=== PATIENT | female | born 1965 ===

== ENCOUNTER 2016-12-27 21:17 | Emergency (ER) | payer OTHER ==
[2016-12-27 21:39] VITALS: BP 130/76
--- NOTE | 2016-12-27 22:11 | UC ---
Skin Complaint HPI - HPI Summary HPI Summary: patient tightened her nose peircing and now it is stuck and starting to make the side of her nose swell. - History of Current Complaint Time Seen by Provider: 12/27/16 21:38 Stated Complaint: EMBEDDED NOSE PIERCING Hx Obtained From: Patient ?: No Onset/Duration: Sudden Onset, Lasting Hours Skin Exposure Onset/Duration: Hours Ago Timing: Constant Onset Severity: Mild Current Severity: Moderate Location: Face, Nose Character: Swelling, Redness Aggravating: Touch Alleviating: Nothing - Allergy/Home Medications Allergies/Adverse Reactions: Allergies Allergy/AdvReac Type Severity Reaction Status Date / Time Fluconazole [From Diflucan] Allergy Hives Verified 12/27/16 21:35 Home Medications: Home Medications Metoprolol Tartrate TAB* [Lopressor TAB*] 50 mg PO BID 12/27/16 [History Confirmed 12/27/16] proPAFENone TAB* [Rythmol*] 150 mg PO TID 12/27/16 [History Confirmed 12/27/16] Review of Systems Constitutional: Negative Skin: Other - embedded nose peircing Eyes: Negative ENT: Negative Respiratory: Negative Cardiovascular: Negative Gastrointestinal: Negative Genitourinary: Negative Motor: Negative Neurovascular: Negative Musculoskeletal: Negative Neurological: Negative Psychological: Negative All Other Systems Reviewed And Are Negative: Yes PMH/Surg Hx/FS Hx/Imm Hx Previously Healthy: Yes - Surgical History Surgical History: None - Family History Known Family History: Positive: Cardiac Disease, Hypertension - Social History Alcohol Use: None Substance Use Type: None Smoking Status (MU): Never Smoked Tobacco Physical Exam Triage Information Reviewed: Yes Appearance: Well-Appearing, Well-Nourished, Pain Distress Vital Signs: Initial Vital Signs Temp 98.0 F 12/27/16 21:36 Pulse 58 12/27/16 21:36 Resp 16 12/27/16 21:36 BP 130/76 12/27/16 21:36 Pulse Ox 100 12/27/16 21:36 Vital Signs Reviewed: Yes Eye Exam: Normal ENT: Positive: Hearing grossly normal, Pharynx normal, TMs normal Dental Exam: Normal Neck exam: Normal Respiratory Exam: Normal Respiratory: Positive: Chest non-tender, Lungs clear, Normal breath sounds Cardiovascular Exam: Normal Cardiovascular: Positive: RRR, No Murmur, Pulses Normal Abdominal Exam: Normal Musculoskeletal Exam: Normal Skin: Positive: Other - imbedded nose ring in the right nostril, area around the ring is swollen and sore Course/Dx - Course Course Of Treatment: hx obtained, exam performed ,meds reviewed, attempts made to remove the peircing without any results. ice applied - Diagnoses Provider Diagnoses: embedded nose peircing Discharge - Discharge Plan Condition: Stable Disposition: HOME Patient Education Materials: Soft Tissue Foreign Body (ED) Additional Instructions: 1. keep ice on the area for swelling. 2. Follow up as neede for remval of peircing.
== END 2016-12-27 22:18 | disposition home or self-care (01) ==
LOC: UCCORT 21:17
DX: T17.1XXA Foreign body in nostril, initial encounter (principal); X58.XXXA Exposure to other specified factors, initial encounter; Y93.9 Activity, unspecified; Y92.9 Unspecified place or not applicable
CPT/HCPCS: 99201; G0463